=== PATIENT | male | born 1955 | race Caucasian/White ===

== ENCOUNTER 2016-11-15 07:44 | Emergency (ER) | payer OTHER ==
[~2016-11-15] VITALS: Ht 172.7 cm; Wt 65.7 kg
--- NOTE | 2016-11-15 08:28 | PHYS DOC ---
General Chief Complaint: ANIMAL BITE Stated Complaint: ANIMAL BITE Time Seen by MD: 07:56 Source: patient Exam Limitations: no limitations Problems: History of Present Illness Initial Comments Pt is 61/M to ED for Work Comp bat bite injury. Pt works for [employer], states a bat was in the classroom yesterday. Pt was wearing rubber gloves, states he picked up the bat and as he was walking with it it bit thru glove causing puncture wound to ant aspect left 2nd finger pad. He washed the wound and thought nothing of it, has had no sx. Since then he has learned of rabies risk so he has come to discuss. Td not up to date. Pt has COPD/smokes denies immunocompromise. No other c/o Onset: yesterday Severity: mild Pain/Injury Location: left 2nd finger Method of Injury: other Allergies: Coded Allergies: No Known Drug Allergies (Unverified , 11/15/16) Past Medical History Medical History: other (COPD) Surgical History: noncontributory Social History Smoker: cigarettes Alcohol: none Drugs: marijuana Review of Systems Constitutional: denies chills, denies fever, denies malaise Respiratory: see HPI Cardiovascular: denies chest pain, denies palpitations Gastrointestinal: denies nausea, denies vomiting Musculoskeletal: denies back pain, denies joint swelling, denies neck pain Skin: see HPI Psychiatric/Neurological: denies headache, denies numbness, denies paresthesia Physical Exam General Appearance: WD/WN, no apparent distress Neck: non-tender, supple Cardiovascular/Respiratory: normal peripheral pulses, no respiratory distress Elbow/Forearm: normal inspection, non-tender Wrist: normal inspection, non-tender Hand: non-tender (bite wound see below) Neurologic/Tendon: normal sensation, normal motor functions, normal tendon functions Psychiatric: alert, oriented x 3 Skin: warm/dry (scabbed 0.2cm puncture wound left 2nd distal phalanx ant aspect no swell/erythema) Orders, Labs, Meds I discussed rabies, tetanus, and secondary skin infection. Td vaccine and IG given as well as vaccine. Discussed outpt serial vaccination and smoking cessation. Pt expressed agreement/understanding with treatment plan. Departure Time of Disposition: 08:23 Disposition: 01 HOME, SELF-CARE Diagnosis: bat bite left 2nd finger, rabies prophylaxis, work Condition: GOOD Patient Instructions: Animal Bite, [id number], VIS, Rabies - CDC Additional Instructions: Off work today. Today your tetanus was updated. You also received rabies vaccination and immune globulin. You will need to follow up at [facility] infusion clinic on 11/18, 11/22 , and 11/29 for subsequent rabies vaccinations. In the future, if the offending animal can be contained it can be sent to animal control for testing potentially avoiding this vaccination series if the animal tests appropriately. Will also prescribe antibiotic (bactrim ds) to prevent MRSA/other skin infection. OTC tylenol/ibuprofen as needed. Follow up as above. Follow up with employer re: Work Comp. Return to ED with new or changing symptoms. DEX MAC DO Nov 15, 2016 08:28
[2016-11-15] MEDS ORDERED: SULF1TAB24 PO (08:29)
[2016-11-15] MEDS ORDERED: RABIES VIRUS VACC PF 2.5 UNIT / 1 ML VIAL. VAX IM ONE (08:45)
[2016-11-15] MEDS ORDERED: LIDOCAINE 2% 20 ML VIAL. IJ ONE (08:45)
[2016-11-15] MEDS ORDERED: RABIES IMMUNE GLOBULIN PF 150 UNIT/ML 10ML VIAL. VAX IM ONE (09:00)
[2016-11-15] MEDS ORDERED: DIPHTH,PERTUSS(ACELL),TET TOX 0.5 ML DISP.SYRIN. VAX IM ONE (09:00)
[2016-11-15 09:40] VITALS: BP 148/91
== END 2016-11-15 10:00 | disposition home or self-care (01) ==
LOC: ER 07:44
DX: Z23 Encounter for immunization (principal); S60.471A Other superficial bite of left index finger, initial encounter; F17.210 Nicotine dependence, cigarettes, uncomplicated; J44.9 Chronic obstructive pulmonary disease, unspecified; W64.XXXA Exposure to other animate mechanical forces, initial encounter; Y93.89 Activity, other specified; Y92.89 Other specified places as the place of occurrence of the external cause; Y99.8 Other external cause status
CPT/HCPCS: 90376; 90471; 90472; 90675; 90715; 96372; 99284-25; J2001